=== PATIENT | female | born 1980 | race Two or more races ===

== ENCOUNTER 2024-12-16 14:35 | Outpatient (RCR) | payer MEDICAID, SELFPAY ==
--- NOTE | 2024-12-16 14:45 | PTNOTE_ITS ---
PT OP Initial Eval Patient Information Outpatient Physical Therapy Treatment Date: 12/16/24 Visit Reasons: Pain in Rt Shoulder/Cervicalgia Medical Diagnosis: M89.8X1 M25.511 M54.2 Treatment Dx #1: R shoulder pain Treatment Dx #2: neck pain Start of Care: 12/16/24 Date of Onset: April 2024 Smoking Status Smoking Status: Never smoker Initial Assessment Subjective: Pt is 44 yr old amharic speaking female who c/o R shoulder pain and R sided neck pain x8 months. When she reaches [place], lifts heavy things, and opens jars/keys. This limits HH chore tolerance sometimes when it's hurting. The R side of the neck hurts at times and the pain runs down into the shoulder and R UE. PMH: HTN Imaging: Xray report in chart is negative Pt goal: less pain Objective: R shoulder AROM: FF: 132 deg Abd: 113 deg ER: 90 deg Posture: fwd head posture TTP: moderate of R side of neck along levator scapula mm Tao Baldemar: positive empty can: positive Nettles's: positive C/S AROM: Rotation; 90% of normal B without pain Flexion: 90% of full Extension: 50% of full with compensatory cervical protraction Assessment: Pt presents with decreased R shoulder ROM, fwd head sitting posture and R sided neck pain. Pt requires skilled therapy to meet goals and has fair rehab potential. 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 Ind with HEP 2. Improved AROM of R shoulder to 140 deg FF and abduction without pain 3. Pt will sit with neutral head posture x5' 4. Decreased TTP of R levator scap mm from mod to min Treatment Plan ?1. Manual therapy ? 2. Therex ? 3. Modalities as indicated, moist heat, ice, estim, mechanical traction Frequency and Duration: 1-2x a week for 12 visits plus the evaluation Certification Dates: 12/16/24 to 03/16/25 Procedure Charges OP PT Eval Mod Complex 30 minutes: Yes
== END 2025-01-06 23:59 | disposition home or self-care (01) ==
LOC: CPTX 14:35
PROVIDERS: PCP Nurse Practitioner Family; Referring Provider Nurse Practitioner Family; Visit Provider Nurse Practitioner Family
DX: M25.511 Pain in right shoulder (principal); M54.2 Cervicalgia; M89.8X1 Other specified disorders of bone, shoulder; I10 Essential (primary) hypertension
CPT/HCPCS: 97162

== ENCOUNTER 2025-01-27 16:12 | Outpatient (RCR) | payer MEDICAID, SELFPAY ==
--- NOTE | 2025-01-27 18:25 | PT.ODAYNRPT ---
PT Outpatient Daily Note OP Daily Note Outpatient Physical Therapy Treatment Date: 01/27/25 Visit Reasons: Pain in RT shoulder Subjective: Continued pain Objective: See F/S for therex MT: STM R UT x5' MHP x7' R UT and superior shoulder Assessment: Increased R UT pain with R UE reaching Plan: Continue per POC Length of Time (minutes) of Treatment: 30 Minutes Procedure Charges Therapeutic Exercise 30 minutes: Yes
--- NOTE | 2025-02-27 18:21 | PT.ODS1RPT ---
PT OP Progress/Discharge Note Date of Service: 02/27/25 Progress Note/DC Note Progress Note/Discharge Note: DC Note Patient Information Visit Reasons: Pain in RT shoulder Service Continue Service or Discharge: Discharge Discharge Date: 02/27/25 Status Assessment: Pt attended the initial evaluation and 1 Rx visits with 1 no show and 3 cancelations and never returned or called to schedule a follow-up appointment within the past 30 days, which is not in compliance with attendance policy. Pt?s attendance is not consistent enough to make progress with goals. Thank you for your referrals. Plan: D/C
== END 2025-02-06 23:59 | disposition home or self-care (01) ==
LOC: CPTX 16:12
PROVIDERS: PCP Nurse Practitioner Family; Referring Provider Nurse Practitioner Family; Visit Provider Nurse Practitioner Family
DX: M25.511 Pain in right shoulder (principal); M54.2 Cervicalgia; M89.8X1 Other specified disorders of bone, shoulder
CPT/HCPCS: 97110